=== PATIENT | male | born 1965 | race Hispanic/Latino ===

== ENCOUNTER 2017-08-04 15:51 | Emergency (ER) | payer OTHER ==
[2017-08-04] MEDS ORDERED: KETOROLAC TROMETHAMINE 30MG/ML ONE ×2 (16:26→17:09)
[2017-08-04] MEDS ORDERED: CYCLOBENZAPRINE HCL 10 MG TABLET ONE (16:26)
[2017-08-04] MEDS ORDERED: TETANUS/DIPHTHERIA TOXOID [ADULT] 0.5 ML VIAL IM ONE (17:36)
== END 2017-08-04 18:46 | disposition home or self-care (01) ==
LOC: EDH 15:51
DX: S13.4XXA Sprain of ligaments of cervical spine, initial encounter (principal); S93.491A Sprain of other ligament of right ankle, initial encounter; S40.012A Contusion of left shoulder, initial encounter; S00.83XA Contusion of other part of head, initial encounter; V49.49XA Driver injured in collision with other motor vehicles in traffic accident, initial encounter; Y93.89 Activity, other specified; Y92.89 Other specified places as the place of occurrence of the external cause; Y99.8 Other external cause status
CPT/HCPCS: 70100; 71046; 72040; 73030; 73600; 90471; 90714; 96372; 99284; J1885 ×2

== ENCOUNTER 2018-04-07 23:07 | Emergency (ER) | payer OTHER | END 2018-04-08 01:04 | disposition home or self-care (01) | LOC: EDH 23:07 | DX: J06.9 Acute upper respiratory infection, unspecified (principal) | CPT/HCPCS: 87880 ==

== ENCOUNTER 2024-02-26 15:39 | Emergency (ER) | payer BC ==
[~2024-02-26] VITALS: Ht 177.8 cm; Wt 87.1 kg
[2024-02-26 15:43] VITALS: BP 126/86; PULSE 79; RESP 16; TEMP 100.3
--- NOTE | 2024-02-26 16:31 | EKG ---
[facility] Test Date: 2024-02-26 Test Time: 16:24:48 Pat Name: ALEJANDRO MTZ Department: ED Room: Gender: M [employer]: [id number] : 1965 Requested By: JULIEN VALLECILLO Order Number: [id number] Reading MD: Mukesh Mcdowell Measurements Intervals [place] Rate: 74 P: 59 AL: 119 QRS: 55 QRSD: 79 T: 50 QT: 351 QTc: 390 Interpretive Statements Sinus rhythm No previous ECG available for comparison Electronically Signed On 02-26-2024 20:04:50 CLINICAL PHARMACIST by Mukesh Mcdowell Please click the below link to view image of tracing.
[2024-02-26 16:43] LABS: BASOPHILS # (AUTO) 0.02 K/uL (0.00-0.20); BASOPHILS % (AUTO) 0.2 % (0.0-5.0); EOSINOPHILS # (AUTO) 0.05 K/uL (0.00-0.70); EOSINOPHILS % (AUTO) 0.6 % (0.0-8.0); HEMATOCRIT 46.8 % (42-54); IMMATURE GRANULOCYTE ABSOLUTE 0.03 K/uL (0-1); LYMPHOCYTES # (AUTO) 0.6 K/uL (1.0-4.8); LYMPHOCYTES % (AUTO) 6.6 % (21.0-51.0); MEAN CORPUSCULAR HEMOGLOBIN 31.9 pg (27.0-33.0); MEAN CORPUSCULAR HGB CONC 33.1 g/dL (32.0-36.0); MEAN CORPUSCULAR VOLUME 96.3 fL (79-99); MONOCYTES # (AUTO) 0.4 K/uL (0.1-1.0); MONOCYTES % (AUTO) 4.6 % (3.0-13.0); NEUTROPHILS # (AUTO) 7.9 K/uL (1.8-7.7); NEUTROPHILS % (AUTO) 87.7 % (40.0-77.0); PLATELET COUNT (AUTO) 245 K/uL (130-400); RED BLOOD CELL COUNT(AUTO) 4.86 MIL/uL (4.50-6.20); RED CELL DISTRIBUTION WIDTH 12.5 % (11.0-15.5); WHITE BLOOD COUNT (AUTO) 9.1 K/uL (4.8-10.8)
[2024-02-26 17:00] LABS: CREATININE 0.8 mg/dL (0.5-1.3)
[2024-02-26 17:00] LABS: INFLUENZA TYPE A Negative For Type A (NEGATIVE); INFLUENZA TYPE B Negative For Type B (NEGATIVE)
[2024-02-26 17:01] LABS: COVID19 (SARS ANTIGEN RAPID) PRESUMPTIVE NEGATIVE (NEGATIVE)
[2024-02-26 17:09] LABS: ALBUMIN 4.1 g/dL (3.5-5.0); BILIRUBIN,DIRECT 0.1 mg/dL (0.0-0.3); BILIRUBIN,TOTAL 0.5 mg/dL (0.2-1.0); TOTAL PROTEIN, SERUM 7.7 g/dL (6.0-8.3)
[2024-02-26 17:15] LABS: APPEARANCE,URINE CLEAR (CLEAR); BILIRUBIN,URINE NEGATIVE (NEGATIVE); COLOR,URINE YELLOW (YELLOW); GLUCOSE, URINE (UA) NEGATIVE (NEGATIVE); KETONES,URINE NEGATIVE (NEGATIVE); LEUKOCYTE ESTERASE ,URINE NEGATIVE Leu/uL (NEGATIVE); NITRATE,URINE NEGATIVE (NEGATIVE); OCCULT BLOOD,URINE SMALL (NEGATIVE); PH,URINE 5.5 (5.0-8.0); PROTEIN,URINE 30 mg/dL (NEGATIVE); UROBILINOGEN,URINE 0.2 mg/dL (0.2-1.0)
[2024-02-26 17:22] LABS: ADD UA MICROSCOPIC YES
[2024-02-26 17:24] LABS: MUCUS,URINE MOD LPF (None Seen); SQUAMOUS EPITHELIAL CELL,UR RARE /HPF (0-2)
--- NOTE | 2024-02-26 17:47 | ERN ---
ED Note History of Present Illness Stated Complaint: LEFT EYE PAIN, WEAKNESS, BACK PAIN Chief Complaint: Back Pain-No Injury Time Seen by MD: 16:01 Dictation: 59-year-old male presents to the ED for evaluation of headache onset 2 weeks ago worsening today. Patient reports back pain, nausea, eye pain, but denies any other associated symptoms at this time. Patient reports pain began in his eye then radiated to his head and today woke up with back pain and a generalized headache. Allergies: Coded Allergies: No Known Allergies (Unverified Allergy, Unknown, 02/26/24) Past Medical History Past Medical History: No Pertinent History Surgical History: None Review of System Dictation Constitutional: Negative for fever,chills, and weight loss Eyes: Positive for eye pain, Negative for injury,redness, and discharge ENT: Negative for injury,pain or swelling Cardiovascular: Negative for chest pain, palpitations, and edema Respiratory: Negative for shortness of breath, cough, and wheezing, Abdomen/GI: Positive for nausea, Negative for abdominal pain, vomiting, diarrhea, and constipation Back: Positive for back pain Negative for injury : Negative for injury, bleeding and discharge MS/Extremity: Negative for injury and deformity Skin: Negative for rash, and discoloration Neuro: Positive for headache, Negative for weakness, numbness, tingling, and seizure Psych: Negative for suicide ideation, homicidal ideation, and hallucinations Initial Vital Sign VS Vital Signs Date Time Temp Pulse Resp B/P (MAP) Pulse Ox O2 Delivery O2 Flow Rate FiO2 02/26/24 15:43 100.2 79 16 126/86 96 Room Air 0 Physical Exam Dictation General: awake, alert, NAD Head/Face: Normocephalic, atraumatic Eyes: PERRL, EOMI, vision at baseline ENT: oral cavity clear, TMs clear, no signs of infection Neck: Trachea midline, supple, no nuchal rigidity Cardiovascular: RRR, normal S1/S2, No MRGs, no JVD Respiratory: CTAB, no respiratory distress, No rales or wheezes Abdomen: Soft, non-tender, non-distended, normal bowel sounds, no guarding or rebound. Skin: Warm, dry, normal turgor, no rash MS/Extremity: Pulses equal, no cyanosis, neurovascular intact, FROM Neuro: COAx4, GCS 15, strength 5/5, CN 2-12 intact, normal cerebellar exam, normal gait, Psych: Normal behavior, mood, and affect normal Results (Laboratory/Radiology) Laboratory/Radiology Laboratory Tests Test 02/26/24 16:31 02/26/24 16:32 02/26/24 16:33 White Blood Count 9.1 K/uL (4.8-10.8) Red Blood Count 4.86 MIL/uL (4.50-6.20) Hemoglobin 15.5 g/dL (14.0-18.0) Hematocrit 46.8 % (42-54) Mean Corpuscular Volume 96.3 fL (79-99) Mean Corpuscular Hemoglobin 31.9 pg (27.0-33.0) Mean Corpuscular Hemoglobin Concent 33.1 g/dL (32.0-36.0) Red Cell Distribution Width 12.5 % (11.0-15.5) Platelet Count 245 K/uL (130-400) Mean Platelet Volume 10.6 fL (7.5-10.5) H Immature Granulocyte % (Auto) 0.3 % (0-1) Neutrophils (%) (Auto) 87.7 % (40.0-77.0) H Lymphocytes (%) (Auto) 6.6 % (21.0-51.0) L Monocytes (%) (Auto) 4.6 % (3.0-13.0) Eosinophils (%) (Auto) 0.6 % (0.0-8.0) Basophils (%) (Auto) 0.2 % (0.0-5.0) Neutrophils # (Auto) 7.9 K/uL (1.8-7.7) H Lymphocytes # (Auto) 0.6 K/uL (1.0-4.8) L Monocytes # (Auto) 0.4 K/uL (0.1-1.0) Eosinophils # (Auto) 0.05 K/uL (0.00-0.70) Basophils # (Auto) 0.02 K/uL (0.00-0.20) Absolute Immature Granulocyte (auto 0.03 K/uL (0-1) Nucleated Red Blood Cells 0.0 % (0.0-0.19) White Cell Morphology Comment See comments Sodium Level 137 mmol/L (136-145) Potassium Level 4.0 mmol/L (3.5-5.1) Chloride Level 102 mmol/L (101-111) Carbon Dioxide Level 26 mmol/L (21-32) Blood Urea Nitrogen 16 mg/dL (7-18) Creatinine 0.8 mg/dL (0.5-1.3) Glomerular Filtration Rate Calc 103 mL/min (>90) Random Glucose 137 mg/dL (70-105) H Total Calcium 8.8 mg/dL (8.5-10.1) Total Bilirubin 0.5 mg/dL (0.2-1.0) Direct Bilirubin 0.1 mg/dL (0.0-0.3) Aspartate Amino Transf (AST/SGOT) 14 U/L (10-37) Alanine Aminotransferase (ALT/SGPT) 24 U/L (12-78) Alkaline Phosphatase 99 U/L (50-136) Troponin I High Sensitivity 6 ng/L (4-75) Total Protein 7.7 g/dL (6.0-8.3) Albumin 4.1 g/dL (3.5-5.0) Influenza Type A Antigen Negative For Type A Influenza Type B Antigen Negative For Type B SARS-CoV-2 Antigen (Rapid) PRESUMPTIVE NEGATIVE Urine Color YELLOW (YELLOW) Urine Appearance CLEAR (CLEAR) Urine pH 5.5 (5.0-8.0) Urine Specific [place] 1.029 (1.001-1.031) Urine Protein 30 mg/dL (NEGATIVE) H Urine Glucose (UA) NEGATIVE mg/dL (NEGATIVE) Urine Ketones NEGATIVE mg/dL (NEGATIVE) Urine Occult Blood SMALL (NEGATIVE) H Urine Nitrate NEGATIVE (NEGATIVE) Urine Bilirubin NEGATIVE mg/dL (NEGATIVE) Urine Urobilinogen 0.2 mg/dL (0.2-1.0) Urine Leukocyte Esterase NEGATIVE [place]/uL Urine RBC 6-10 /HPF (0-1) H Urine WBC 2-5 /HPF (0-1) H Urine Squamous Epithelial Cells RARE /HPF (0-2) Urine Bacteria None /HPF (None Seen) Labs Reviewed?: Yes CT Scan Comment: REASON: acute headache ORDERING PHYSICIAN: JULIEN VALLECILLO MD PROCEDURE: HEAD WO - CT HEAD/BRAIN W/O CONTRAST Exam: NONCONTRAST CT BRAIN REASON: acute headache. COMPARISON: None. TECHNIQUE: Images are obtained from vertex to the skull base. The exam was performed without IV contrast. FINDINGS: There is normal appearing brain parenchyma. There are no focal mass lesions. There is is no evidence of intracranial hemorrhage or acute stroke. Ventricles and sulci appear normal. Posterior fossa and brainstem structures are unremarkable. Paranasal sinuses and remaining extracranial soft tissues appear normal as well. IMPRESSION: 1. Normal noncontrast CT brain. CT was performed with one or more following dose reduction techniques: automated exposure control, adjustment of the mA and kv according to patient's size, or use of a iterative reconstruction technique. ED Course ED Course Orders Procedure Category Date Status Time Covid19 (Sars Antigen LAB 02/26/24 Complete Rapid) 16:22 Influenza Type A & B, LAB 02/26/24 Complete Rapid 16:22 Basic Metabolic Panel LAB 02/26/24 Complete 16:22 Cbc With Differential LAB 02/26/24 Complete 16:22 Hepatic Function Panel LAB 02/26/24 Complete 16:22 Urinalysis Profile LAB 02/26/24 Complete 16:22 Troponin I High LAB 02/26/24 Complete Sensitivity 16:22 12 Lead Ekg Tracing- EKG 02/26/24 Complete Technical 16:22 Ct Head/Brain W/O CT 02/26/24 Resulted Contrast 17:33 Vital Signs Date Time Temp Pulse Resp B/P (MAP) Pulse Ox O2 Delivery O2 Flow Rate FiO2 02/26/24 15:43 100.2 79 16 126/86 96 Room Air 0 Medical Decision Making MDM MDM: Differential diagnosis: Headache, back pain, nausea Previous outside records reviewed: Old ER visits. Need for hospitalization: Patient does not meet criteria for hospitalization. Need for emergency major/minor surgery: No Patient's prior external medical records from other ER visits were reviewed by me as indicated. Prior testing and results from previous visits were reviewed. Prior tests were taken into account with medical decision making and resource utilization, independent historian/historians were used to obtain complete medical history. I independently interpreted the test that were performed, results were reviewed by me and considered findings on radiology if ordered. Medical management and examination interpretation discussions were had by me with other qualified healthcare professionals as indicated for the patient's care. DX & DISP Disposition: Discharge Departure Impression: Primary Impression: Acute headache Additional Impression: Acute weakness Condition: Stable Referrals: SELF,REFERRAL (PCP) I have reviewed, & agreed with my scribe's, documentation. (Entered by Jen Telles, acting as a scribe for Dr. Vallecillo) I personally scribed for JULIEN VALLECILLO MD ([email or web address]) on 02/26/24 at 17:47. Electronically submitted by Jen Telles ([facility]). I personally scribed for JULIEN VALLECILLO MD ([email or web address]) on 02/26/24 at 18:58. Electronically submitted by Jen Telles ([email or web address]). JULIEN VALLECILLO MD Feb 26, 2024 17:47
--- NOTE | 2024-02-26 18:48 | HMCIMG ---
Exam: NONCONTRAST CT BRAIN REASON: acute headache. COMPARISON: None. TECHNIQUE: Images are obtained from vertex to the skull base. The exam was performed without IV contrast. FINDINGS: There is normal appearing brain parenchyma. There are no focal mass lesions. There is is no evidence of intracranial hemorrhage or acute stroke. Ventricles and sulci appear normal. Posterior fossa and brainstem structures are unremarkable. Paranasal sinuses and remaining extracranial soft tissues appear normal as well. IMPRESSION: 1. Normal noncontrast CT brain. CT was performed with one or more following dose reduction techniques: automated exposure control, adjustment of the mA and kv according to patient's size, or use of a iterative reconstruction technique.
== END 2024-02-26 19:18 | disposition home or self-care (01) ==
LOC: EDH 15:39
DX: R51.9 Headache, unspecified (principal); R53.1 Weakness; Z20.822 Contact with and (suspected) exposure to COVID-19
CPT/HCPCS: 36415; 70450; 80048; 80076; 81001; 84484; 85025; 87426; 87804; 93005; 99284